=== PATIENT | male | born 1990 | race African-American/Black ===

== ENCOUNTER 2024-01-01 07:01 | Emergency (ER) | payer OTHER, MEDICAID ==
[~2024-01-01] VITALS: Ht 188 cm; Wt 104.1 kg
[2024-01-01] MEDS ORDERED: DIPHTH,PERTUSS(ACELL),TET VAC 0.5 ML SYRINGE IM ONE (07:15)
[2024-01-01] MEDS ORDERED: ondansetron HCL 4 MG/2 ML VIAL IV ONE (07:15)
[2024-01-01] MEDS ORDERED: HYDROmorphone HCL 1 MG/ML SYR IV ONE (07:15)
[2024-01-01] MEDS ORDERED: LACTATED RINGER'S 1,000 ML IV ONE (07:15)
[2024-01-01 07:48] LABS: HEMATOCRIT 46.6 % (35.0-50.0); HEMOGLOBIN 15.8 g/dL (12.0-18.0); MCH 28.3 (27-36); MCHC 33.9 g/dl (30-36); MCV 83.7 fl (81-99); PLATELET COUNT 219 K/uL (140-440); RBC 5.57 M/ul (4.3-5.7); RDW 13.6 (10.5-15.0)
[2024-01-01 08:02] LABS: ALBUMIN 3.4 g/dL (3.4-5.0); ALBUMIN/GLOBULIN RATIO 1.31 (1.1-2.4); ALCOHOL, MEDICAL <3 ng/dL (<3); ALKALINE PHOSPHATASE 70 U/L (46-116); ALT (SGPT) 29 U/L (14-59); ANION GAP 13.1 (7-21); AST (SGOT) 32 U/L (15-37); BILIRUBIN, TOTAL 0.8 ng/dL (0.2-1.0); BUN/CREATININE RATIO 9.83 (6.0-28.6); CARBON DIOXIDE 28 mmol/L (21-32); CHLORIDE 105 mmol/L (98-107); CREATINE KINASE 743 U/L (39-308); CREATININE, SERUM 1.22 mg/dL (0.70-1.30); GLOMERULAR FILTRATION RATE,EST 81 mL/min (>60); POTASSIUM 3.1 mmol/L (3.5-5.1); UREA NITROGEN 12 mg/dL (7-18)
[2024-01-01 08:11] LABS: BANDS, MANUAL DIFF 1; BASOPHILS, MANUAL DIFF 1; EOSINOPHILS, MANUAL DIFF 2; LYMPHOCYTES, MANUAL DIFF 6; MONOCYTES, MANUAL DIFF 7; NEUTROPHILS, MANUAL DIFF 83
[2024-01-01 08:29] LABS: ABO O; RH POSITIVE
[2024-01-01 08:31] LABS: ANTIBODY SCREEN NEGATIVE
[2024-01-01 09:51] VITALS: BP 143/88
--- NOTE | 2024-01-01 21:25 | EKG ---
[facility] [address] [facility] [place] [address] Signed Normal sinus rhythm Normal ECG No previous ECGs available Confirmed by Nat Murray MD () on 01/01/2024 9:25:13 PM Electronically Signed By: NAT MURRAY MD 01/01/[id number] PATIENT NAME: SORAIDA DEE Electrocardiogram DATE OF : [birth year] PHYSICIAN: NAT MURRAY MD REPORT #: [id number] REPORT IS CONFIDENTIAL AND NOT TO BE RELEASED WITHOUT AUTHORIZATION
== END 2024-01-01 09:51 | disposition short-term general hospital (02) ==
LOC: ED 07:01
PROVIDERS: Emergency Medicine
DX: S12.500A Unspecified displaced fracture of sixth cervical vertebra, initial encounter for closed fracture (principal); S51.812A Laceration without foreign body of left forearm, initial encounter; S22.019A Unspecified fracture of first thoracic vertebra, initial encounter for closed fracture; S00.03XA Contusion of scalp, initial encounter; S42.012A Anterior displaced fracture of sternal end of left clavicle, initial encounter for closed fracture; S22.20XA Unspecified fracture of sternum, initial encounter for closed fracture; S27.321A Contusion of lung, unilateral, initial encounter; V89.2XXA Person injured in unspecified motor-vehicle accident, traffic, initial encounter
CPT/HCPCS: 12002; 36415; 70450; 71045; 71260; 72125; 73090; 74177; 80053; 80307; 82553; 83605; 84484; 85025; 86850; 86900; 86901; 90471; 90715; 93005; 93010; 99285-25; G0480; J2405; J7121; Q9967